=== PATIENT | female | born 1955 | race Caucasian/White ===

== ENCOUNTER 2019-03-26 15:43 | Outpatient (CLI) | payer MEDICARE, OTHER | END 2019-03-26 15:44 | disposition critical access hospital (66) | LOC: EMS 15:43 | PROVIDERS: ATTEND Surgery | DX: S69.92XA Unspecified injury of left wrist, hand and finger(s), initial encounter (principal); S09.93XA Unspecified injury of face, initial encounter; W01.0XXA Fall on same level from slipping, tripping and stumbling without subsequent striking against object, initial encounter; Y92.480 Sidewalk as the place of occurrence of the external cause | CPT/HCPCS: A0425; A0427 ==

== ENCOUNTER 2019-03-26 16:17 | Emergency (ER) | payer MEDICARE, OTHER ==
[2019-03-26] MEDS ORDERED: TETANUS/DIPHTHERIA/PERTUSSIS 0.5 ML SYRINGE IM ONE (16:28)
--- NOTE | 2019-03-26 17:23 | XRAY Report ---
Reason: left hand, ring finger injury Procedure Date: 03/26/2019 Accession Number: [id number] / [id number] Procedure: XR - Hand 3 View LT CPT Code: FULL RESULT: EXAM: LEFT HAND RADIOGRAPHY EXAM DATE: 03/26/2019 04:41 PM. CLINICAL HISTORY: Left hand, ring finger injury. COMPARISON: None. TECHNIQUE: 3 views. FINDINGS: Bones: There is a fracture of the proximal metaphysis of the fourth proximal phalanx. The fracture appears angulated without displacement. Joints: Normal. No subluxations. Soft Tissues: No soft tissue foreign body. IMPRESSION: Angulated fracture of the fourth proximal phalanx proximal metaphysis. RADIA
--- NOTE | 2019-03-26 17:25 | CT Report ---
Reason: Fall with closed head injury Procedure Date: 03/26/2019 Accession Number: [id number] / [id number] Procedure: CT - HEAD WO CPT Code: FULL RESULT: EXAM: CT HEAD EXAM DATE: 03/26/2019 04:50 PM. CLINICAL HISTORY: Fall with closed head injury. COMPARISON: None. TECHNIQUE: Multiaxial CT images were obtained from the foramen magnum to the vertex. Reformats: Sagittal and coronal. IV contrast: None. In accordance with CT protocol optimization, one or more of the following dose reduction techniques were utilized for this exam: automated exposure control, adjustment of mA and/or KV based on patient size, or use of iterative reconstructive technique. FINDINGS: Parenchyma: No intraparenchymal hemorrhage. No evidence of mass, midline shift, or CT findings of infarction. Reyes-white differentiation is distinct. Extraaxial Spaces: Normal for age. No subdural or epidural collections identified. Ventricles: Normal in size and position. Sinuses and Orbits: Imaged paranasal sinuses, orbits, and mastoids show no significant abnormality. Bones: No evidence of fracture or calvarial defect. Other: Mild left forehead scalp hematoma noted. IMPRESSION: Normal head CT. RADIA
[2019-03-26] MEDS ORDERED: BACITRACIN ZINC OINT 14 GM TOP STA (17:27)
--- NOTE | 2019-03-26 18:01 | ED Physician Documentation ---
PD HPI Fall - Stated complaint Stated Complaint: TRIP/ FALL - Chief complaint Chief Complaint: Trauma Hd/Nk - History obtained from History obtained from: Patient, EMS - History of Present Illness Mechanism of injury: Tripped Fall distance: Sitting position Where injury occurred: Street Timing - onset: How many minutes ago (Just prior to arrival.) Injury(ies) location: Face, Left Hand Worsens with: Movement, Palpation Similar symptoms before: Has not had sx before - Additional information Additional information: The patient is a 64-year-old female who arrives via ambulance after she tripped on uneven [facility] sidewalk, and fell forward injuring her left hand and face and nose. She denies loss of consciousness. She denies nausea or vomiting, numbness or weakness. She does not take anticoagulant medication. Review of Systems Constitutional: denies: Fever Eyes: denies: Decreased vision Ears: denies: Tinnitus/ringing Nose: denies: Congestion Throat: denies: Sore throat Cardiac: denies: Chest pain / pressure Respiratory: denies: Dyspnea, Cough GI: denies: Abdominal Pain, Nausea, Vomiting : denies: Dysuria, Incontinent Skin: reports: Abrasion (s) (Face, and knees.) Musculoskeletal: reports: Extremity pain (Left hand, especially ring finger.). denies: Back pain Neurologic: denies: Focal weakness, Numbness, Headache, LOC PD PAST MEDICAL HISTORY - Past Medical History Past Medical History: Yes Endocrine/Autoimmune: Other - Present Medications Home Medications: Ambulatory Orders Medication Instructions Recorded Confirmed Hydrocodone/Acetaminophen 1 - 2 each PO Q6H PRN #20 tablet 03/26/19 [Hydrocodon-Acetaminophen 5-325] - Allergies Allergies/Adverse Reactions: Allergies Allergy/AdvReac Type Severity Reaction Status Date / Time Sulfa (Sulfonamide Allergy Anaphylaxis Verified 03/26/19 16:36 Antibiotics) - Social History Does the pt smoke?: Yes Smoking Status: Current every day smoker Does the pt drink ETOH?: Yes Does the pt have substance abuse?: No - Immunizations Immunizations are current?: No - POLST Patient has POLST: No PD ED PE NORMAL - Vitals Vital signs reviewed: Yes (normal) - General General: Alert and oriented X 3, Well developed/nourished - HEENT HEENT: PERRL, EOMI, Other (There are abrasions involving the forehead, nose, and left zygomatic region. There is no bony step-off palpated. There is no tenderness to axial compression on the nasal cartilage, and no septal hematoma. There is a superficial flap on the bridge of the nose. There is no temporomandibular tenderness, and teeth are intact. There is a small, approximately 2 x 4 mm subscleral hemorrhage in the left eye, inferior to the cornea.) - Neck Neck: No bony TTP, No adenopathy, Other (Full cervical range of motion without tenderness.) - Cardiac Cardiac: RRR - Respiratory Respiratory: No respiratory distress, Clear bilaterally, Other (No chest wall tenderness.) - Abdomen Abdomen: Soft, Non tender - Back Back: No CVA TTP, No spinal TTP - Derm Derm: No rash - Extremities Extremities: Other (There is tenderness at the base of the left ring finger. Distal neurovascular is intact.) - Neuro Neuro: Alert and oriented X 3, No motor deficit, No sensory deficit Eye Opening: Spontaneous Motor: Obeys Commands Verbal: Oriented GCS Score: 15 Results - Vitals Vitals: Oxygen O2 Source Room air - Rads (name of study) left hand Radiology: Prelim report reviewed, EMP read contemporaneously, See rad report (Angulated fracture of the fourth proximal phalanx, proximal metaphysis.) Head CT Radiology: Prelim report reviewed, EMP read contemporaneously, See rad report (Normal head CT.) Procedures - Reduction Body part reduced: Left, Finger (ring) Fracture or dislocation: Fracture Anesthesia: Digital block (0.5% marcaine) Reduction aftercare: NV intact, Alignment improved, Splint applied, Patient tolerated well PD MEDICAL DECISION MAKING - ED course Complexity details: reviewed results, re-evaluated patient, considered differential, d/w patient, d/w family ED course: The patient's presentation is significant for angulated fracture of the proximal metaphysis of the proximal phalanx of the left ring finger. In addition, she suffered abrasions to her forehead and face with a small skin tear at the bridge of her nose, as well as abrasions of both knees. Head CT reveals no evidence of skull fracture or intracranial abnormality. Treatment in the emergency department included reduction of the angulated proximal phalangeal fracture after obtaining excellent anesthesia with digital block using 0.5% Marcaine. A volar fiberglass splint was applied. The abrasions were cleaned and antibiotic ointment applied. Steri-Strips were placed over the superficial skin tear on the nose. Tetanus booster was administered. Vicodin one tablet was administered orally. The patient is being discharged with prescription for Vicodin, 20 tablets. I discussed with her and her the expected course of injury, the importance of outpatient follow-up with orthopedics, as well as potentially worrisome signs or symptoms that should prompt reevaluation in the emergency department. Departure - Departure Disposition: 01 Home, Self Care Clinical Impression: Abrasion of knee, bilateral Facial abrasion Qualifiers: Encounter type: initial encounter Qualified Code(s): S00.81XA - Abrasion of other part of head, initial encounter Traumatic hematoma of forehead Qualifiers: Encounter type: initial encounter Qualified Code(s): S00.83XA - Contusion of other part of head, initial encounter Fracture of proximal phalanx of ring finger Qualifiers: Encounter type: initial encounter Fracture type: closed Fracture alignment: nondisplaced Laterality: left Qualified Code(s): S62.645A - Nondisplaced fracture of proximal phalanx of left ring finger, initial encounter for closed fracture Condition: Stable Instructions: ED Fx Finger Closed Prescriptions: Hydrocodone/Acetaminophen [Hydrocodon-Acetaminophen 5-325] 1 - 2 each PO Q6H PRN #20 tablet PRN Reason: pain Comments: Keep the splint dry. Keep your left hand elevated as much of the time as possible. Apply ice pack to your left hand intermittently for the next 3 days. You can use Vicodin as prescribed if needed for pain. Apply antibiotic ointment daily to the abrasions. Follow-up with orthopedic surgeon within 1 week if possible. Call to schedule an appointment. Return to the emergency department if you develop markedly increasing pain or otherwise worsening symptoms. Discharge Date/Time: 03/26/19 18:25
[2019-03-26] MEDS ORDERED: HYDROcod/ACETAM 5/325 MG TABLET PO STA (18:08)
[2019-03-26 18:22] VITALS: BP 116/94
== END 2019-03-26 18:25 | disposition home or self-care (01) ==
LOC: ED 16:17
DX: S62.645A Nondisplaced fracture of proximal phalanx of left ring finger, initial encounter for closed fracture (principal); S01.21XA Laceration without foreign body of nose, initial encounter; S00.81XA Abrasion of other part of head, initial encounter; S00.83XA Contusion of other part of head, initial encounter; S80.212A Abrasion, left knee, initial encounter; S80.211A Abrasion, right knee, initial encounter; W01.0XXA Fall on same level from slipping, tripping and stumbling without subsequent striking against object, initial encounter; Y93.01 Activity, walking, marching and hiking; Y92.480 Sidewalk as the place of occurrence of the external cause; Z23 Encounter for immunization; F17.200 Nicotine dependence, unspecified, uncomplicated
CPT/HCPCS: 26725; 70450; 73130; 90471; 90715; 99284; A9270